=== PATIENT | female | born 1995 | race Caucasian/White ===

== ENCOUNTER → 2024-06-22 08:16 | Outpatient (REF) | payer BC, SELFPAY | LOC: HWRAD 08:16 | PROVIDERS: ATTENDING PHYSICIAN Obstetrics & Gynecology; FAMILY PHYSICIAN Family Medicine | DX: N92.6 Irregular menstruation, unspecified (principal) | CPT/HCPCS: 76830; 76856 ==

== ENCOUNTER 2025-06-08 10:09 | Inpatient (IN) | payer BC, SELFPAY ==
[2025-06-08 10:14] VITALS: BP 122/78; BMI 32.1
[2025-06-08 10:57] LABS: Hematocrit 37.3 % (37.0-47.0); Hemoglobin 12.9 g/dL (12.0-16.0); Mean Corp Hgb Conc. 34.6 g/dL (33.0-37.0); Mean Corpuscular Volume 88.8 fL (81.0-99.0); Nucleated Red Blood Cells % 0 %; Platelet Count 232 10^3/uL (130-400); Red Cell Dist. Width 12.5 % (11.5-14.5)
[2025-06-08] MEDS: LR 1000 IV ×3 (11:12→20:11)
[2025-06-08] MEDS: PITOCIN 30 UNITS/NSS 500 ML IV (12:32)
[2025-06-08] MEDS: FENTANYL/BUPIVACAINE 100 EPIDURAL (18:09)
[2025-06-08] MEDS: SUBLIMAZE 100 MCG EPIDURAL (18:09)
[2025-06-09] MEDS: FENTANYL/BUPIVACAINE 100 EPIDURAL (00:17)
[2025-06-09] MEDS: PITOCIN 30 UNITS/NSS 500 ML IV (04:00)
[2025-06-09] MEDS: XYLOCAINE-MPF 1% VIAL 30 ML INFIL (04:03)
[2025-06-09 04:19] LABS: Cord ABG Comment CORD BLOOD
[2025-06-09 04:21] LABS: B.E. Cord ABG -6.9 mMOL/L; HCO3 Cord ABG 20.2 mmol/L; O2 Saturation % Cord ABG 75.7 %; PCO2 Cord ABG 45 mmHg; PO2 Cord ABG 39 mmHg; pH Cord ABG 7.26
[2025-06-09 04:22] LABS: B.E. Cord ABG -8.4 mMOL/L; HCO3 Cord ABG 22.6 mmol/L; O2 Saturation % Cord ABG 45.3 %; PCO2 Cord ABG 68 mmHg; PO2 Cord ABG 27 mmHg; pH Cord ABG 7.13
[2025-06-09] MEDS: PRENATAL PLUS 1 TABLET PO (08:38)
[2025-06-09] MEDS: COLACE 100 MG PO ×2 (08:38→21:36)
[2025-06-09] MEDS: MOTRIN 600 MG PO ×2 (08:39→18:19)
[2025-06-10 05:06] LABS: Hematocrit 32.5 % (37.0-47.0); Hemoglobin 11.1 g/dL (12.0-16.0)
[2025-06-10] MEDS: MOTRIN 600 MG PO ×2 (07:30→15:34)
[2025-06-10] MEDS: PRENATAL PLUS 1 TABLET PO (07:30)
[2025-06-10] MEDS: COLACE 100 MG PO ×2 (07:31→20:53)
[2025-06-11] MEDS: MOTRIN 600 MG PO ×2 (00:07→12:43)
[2025-06-11] MEDS: COLACE 100 MG PO (12:01)
[2025-06-11] MEDS: PRENATAL PLUS 1 TABLET PO (12:03)
[2025-06-11] MEDS: TYLENOL 650 MG PO (18:04)
[2025-06-13 13:39] LABS: Syphilis/T. pallidum Ab Reflex Negative (Negative)
== END 2025-06-11 15:30 | disposition home or self-care (01) | DRG 807 ==
LOC: LDRP 10:09
PROVIDERS: ADMITTING PHYSICIAN Student in an Organized Health Care Education/Training Program; FAMILY PHYSICIAN Family Medicine
PROC: 10E0XZZ Delivery of Products of Conception, External Approach (ICD-10-PCS; 2025-06-09)
PROC: 0HQ9XZZ Repair Perineum Skin, External Approach (ICD-10-PCS; 2025-06-09)
PROC: 0UQMXZZ Repair Vulva, External Approach (ICD-10-PCS; 2025-06-09)
DX: O42.02 Full-term premature rupture of membranes, onset of labor within 24 hours of rupture (principal); Z37.0 Single live birth; Z3A.39 39 weeks gestation of pregnancy; O70.0 First degree perineal laceration during delivery; O76 Abnormality in fetal heart rate and rhythm complicating labor and delivery; O69.1XX0 Labor and delivery complicated by cord around neck, with compression, not applicable or unspecified
CPT/HCPCS: 36415; 82803; 85014; 85018; 85025; 86780; 86850; 86900; 86901